=== PATIENT | male | born 1980 | race Caucasian/White ===

== ENCOUNTER 2019-12-09 10:17 | Emergency (ER) | payer BC ==
[~2019-12-09] VITALS: Ht 170.2 cm; Wt 87.1 kg
[2019-12-09 10:28] VITALS: Ht 170.2 cm; Wt 87.1 kg
[2019-12-09 11:52] VITALS: BP 125/83
== END 2019-12-09 11:52 | disposition home or self-care (01) ==
LOC: ED 10:17
DX: S43.402A Unspecified sprain of left shoulder joint, initial encounter (principal); M54.6 Pain in thoracic spine; J45.909 Unspecified asthma, uncomplicated; W18.2XXA Fall in (into) shower or empty bathtub, initial encounter; Y93.E1 Activity, personal bathing and showering; Y92.091 Bathroom in other non-institutional residence as the place of occurrence of the external cause; Y99.8 Other external cause status
CPT/HCPCS: Q0092